=== PATIENT | female | born 1965 | race American Indian/Alaskan Native ===

== ENCOUNTER 2019-10-16 11:58 | Emergency (ER) | payer SELFPAY ==
--- NOTE | 2019-10-16 12:53 | Emergency Department Report ---
Chief Complaint: Medical Clearance Stated Complaint: SCREENING FOR BRUNNER -VIRUS Time Seen by Provider: 10/16/19 12:49 - HPI History of Present Illness: 54 y.o. F. that presents to the ER with Patient states she work for [email or web address] and states she ran into the [employer] in [facility] 3 days ago. States the coordinator called her job yesterday and states her son was tested positive for brunner virus. She is now concerned of possibly having brunner virus. Denies fever chills, cough, chest pain, congestion, or - ROS Review of Systems: Review of Systems: ROS: Stated complaint: medical clearance Other details as noted in HPI Comment: All other systems reviewed and negative - Exam Vital Signs: Vital Signs 10/16/19 12:53 Temperature 98.6 F Pulse Rate 80 Respiratory 18 Rate Blood Pressure 160/92 [Right] O2 Sat by Pulse 100 Oximetry Physical Exam: - General Limitations: No Limitations General appearance: alert, in no apparent distress - Head Head exam: Present: atraumatic, normocephalic - Eye Eye exam: Present: normal appearance - ENT ENT exam: Present: mucous membranes moist - Neck Neck exam: Present: normal inspection, full ROM. Absent: lymphadenopathy - Respiratory Respiratory exam: Present: normal lung sounds bilaterally. Absent: respiratory distress - Cardiovascular Cardiovascular Exam: Present: regular rate, normal rhythm. Absent: systolic murmur, diastolic murmur, rubs, gallop - GI/Abdominal GI/Abdominal exam: Present: soft, normal bowel sounds - Extremities Exam Extremities exam: Present: normal inspection - Back Exam Back exam: Present: normal inspection - Neurological Exam Neurological exam: Present: alert, oriented X3 - Psychiatric Psychiatric exam: Present: normal affect, normal mood - Skin Skin exam: Present: warm, dry, intact, normal color. Absent: rash MSE screening note: Focused history and physical exam performed. Due to findings the following was ordered: ED Medical Decision Making - Medical Decision Making 54 y.o. female that presents to the emergency room for medical clearance. Nunu ent examined by me and stable. No distress noted. Vitals normal. Patient denies symptoms at this time. Normal exam. Labs and imaging deferred at this time. This is a nonemergent complaint. Patient instructed to follow-up with primary care doctor or return to the emergency room if symptoms start. Discharged home stable. Follow up with Primary Care Provider in 2-3 days. ED Disposition for MSE Disposition: MED SCREENING EXAM-LEFT Condition: Stable Referrals: [facility] [Outside] - 3-5 Days [facility] [Outside] - 3-5 Days [facility] [Outside] - 3-5 Days Forms: Work/School Release Form(ED)
[2019-10-16 12:54] VITALS: BP 160/92
== END 2019-10-16 13:15 | disposition left against medical advice (07) ==
LOC: ED 11:58
DX: Z00.00 Encounter for general adult medical examination without abnormal findings (principal)
CPT/HCPCS: 99282